=== PATIENT | male | born 1995 | race Caucasian/White ===

== ENCOUNTER 2024-09-29 08:50 | Emergency (ER) | payer OTHER ==
[~2024-09-29] VITALS: Ht 182.9 cm; Wt 90.7 kg
[2024-09-29] MEDS ORDERED: ONDANSETRON ODT 4 MG TAB.RAPDIS ONE ×2 (09:00→09:39)
[2024-09-29] MEDS: ONDANSETRON ODT 4 MG TAB.RAPDIS SL ONE ×2 (09:07→09:44)
[2024-09-29] MEDS ORDERED: METH-807 PO (09:52)
[2024-09-29] MEDS ORDERED: ONDA4TAB5 PO (09:52)
[2024-09-29] MEDS ORDERED: NAPR500T6 PO (09:52)
[2024-09-29 10:05] VITALS: BP 120/68; O2SAT 99
== END 2024-09-29 10:15 | disposition home or self-care (01) ==
LOC: ER 08:50
DX: S06.0X0A Concussion without loss of consciousness, initial encounter (principal); S16.1XXA Strain of muscle, fascia and tendon at neck level, initial encounter; F32.A Depression, unspecified; F41.9 Anxiety disorder, unspecified; R11.0 Nausea; R20.2 Paresthesia of skin; V43.52XA Car driver injured in collision with other type car in traffic accident, initial encounter; Y93.89 Activity, other specified; Y92.488 Other paved roadways as the place of occurrence of the external cause; Y99.8 Other external cause status
CPT/HCPCS: A4606; A4663; Q0162